=== PATIENT | female | born 1965 | race Caucasian/White ===

== ENCOUNTER 2024-08-05 18:43 | Emergency (ER) | payer BC ==
[~2024-08-05] VITALS: Ht 172.7 cm; Wt 68.2 kg
[2024-08-05 19:36] LABS: BASOPHILS % (AUTO) 0.6 % (0-1); EOSINOPHILS # (AUTO) 0.2 X10'3 (0-0.9); EOSINOPHILS % (AUTO) 3.4 % (0-6); HEMATOCRIT 33.2 % (35.0-45.0); HEMOGLOBIN 10.6 g/dl (12.0-16.0); LYMPHOCYTES # (AUTO) 1.6 X10'3 (1.1-4.8); LYMPHOCYTES % (AUTO) 22.6 % (21-51); MEAN CORPUSCULAR HEMOGLOBIN 23.5 PG (27.0-31.0); MEAN CORPUSCULAR HGB CONC 31.9 g/dL (33.0-36.5); MEAN CORPUSCULAR VOLUME 73.6 FL (78-98); MEAN PLATELET VOLUME 6.9 FL (7.4-10.4); MONOCYTES # (AUTO) 0.9 X10'3 (0-0.9); MONOCYTES % (AUTO) 12.6 % (2-12); NEUTROPHILS # (AUTO) 4.2 X10'3 (1.8-7.7); NEUTROPHILS % (AUTO) 60.8 % (42-75); PLATELET COUNT 370 X10'3 (140-440); RED BLOOD COUNT 4.51 X10'6 (4.20-5.60); RED CELL DISTRIBUTION WIDTH 17.4 % (11.5-14.5); WHITE BLOOD COUNT 6.9 X10'3 (4.5-11.0)
[2024-08-05 19:50] LABS: ALANINE AMINOTRANSFERASE 44 U/L (12-78); ALBUMIN 3.1 G/DL (3.4-5.0); ALBUMIN/GLOBULIN RATIO 0.9 (1.1-1.5); ALKALINE PHOSPHATASE 137 IU/L (46-116); ANION GAP 7 (8-16); ASPARTATE AMINO TRANSFERASE 34 U/L (10-37); BILIRUBIN,TOTAL 0.4 MG/DL (0.1-1.0); BLOOD UREA NITROGEN 13 MG/DL (7-18); BUN/CREATININE RATIO 14.9 (10.0-20.0); CALCIUM 8.4 MG/DL (8.5-10.1); CHLORIDE 107 MMOL/L (99-107); CREATININE 0.87 MG/DL (0.40-0.90); GLUCOSE 87 MG/DL (70-104); POTASSIUM 4.2 MMOL/L (3.5-5.1); SODIUM 142 MMOL/L (135-145); TOTAL CARBON DIOXIDE 28.2 MMOL/L (24-32); TOTAL PROTEIN 6.7 G/DL (6.4-8.2); eCRCL 69 ML/MIN; eGFR 66 ML/MIN
[2024-08-05 20:50] LABS: BILIRUBIN,URINE NEGATIVE (Neg); CLARITY,URINE CLEAR (Clear); COLOR,URINE YELLOW (Yellow); GLUCOSE, URINE NEGATIVE (Neg); KETONES,URINE NEGATIVE (Neg); LEUKOCYTE ESTERASE ,URINE TRACE (Neg); NITRITES, URINE NEGATIVE (Neg); OCCULT BLOOD,URINE SMALL (Neg); PROTEIN,URINE NEGATIVE (Neg); UROBILINOGEN,URINE 0.2 E.U/dL (0.2-1.0)
[2024-08-05 20:53] LABS: UA COLLECTION TYPE CLN CATCH MIDSTREAM
[2024-08-05 20:56] LABS: BACTERIA,URINE FEW /HPF (Neg)
[2024-08-05 20:57] LABS: SQUAMOUS EPITHELIAL CELL,UR FEW /LPF (FEW)
--- NOTE | 2024-08-05 23:36 | Physician Documentation ---
History of Present Illness ~ Chief Complaint: Flank Pain Stated Complaint: "I THINK I HAVE KIDNEY STONES" Time Seen by MD: 23:36 Mode of Arrival: POV HPI Patient presents to the emergency room with two day history of right flank pain. No prior instances. No traumas or falls. No dysuria. Patient feels this may be kidney stones. Medication Reconciliation Allergies: Coded Allergies: No Known Allergies (Unverified , 08/05/24) Review of Systems ROS All review of systems negative except as per HPI Physical Exam Vital Signs: Temperature: 99.6, Source: Temporal, Heart Rate: 73, Respiratory Rate: 19, BP: 133/69, Pulse Oximetry: 100, Weight: 68.200 Physical Exam General: Patient is awake, alert, oriented x4 in no acute distress Head: Normocephalic and atraumatic. Eyes: Conjunctival normal. EOMI. PERRL. ENT: Mucous membranes moist. Neck: Supple, trachea is midline. Chest: Clear to auscultation bilaterally without rales, rhonchi, or wheezes. There is no accessory muscle use or retractions. Cardiac: RRR without murmurs, gallops, or rubs. Abd: Soft, nondistended, nontender, with normoactive bowel sounds. No guarding, rebound, or rigidity. Back: Right CVA tenderness. No spinal midline tenderness, no step-offs. Progress Results/Orders Results/Orders Orders - ALEXANDER AQUINO MD Cult Urine + [place] [facility] Ct (08/05/24 20:57) Ct Abdomen Pelvis (08/05/24 23:55) Completed Orders - ALEXANDER AQUINO MD Cbc/Diff (08/05/24 19:10) BMP (08/05/24 19:10) CMP (08/05/24 19:10) Ua W/Microscopic, Cult If Ind (08/05/24 20:40) Ct Abdomen Pelvis (08/05/24 23:55) Ketorolac Trometh 15mg/Ml Vial (Toradol (08/05/24 23:40) Ondansetron Inj. (Zofran 4mg/2ml Vial) (08/06/24 00:25) Hydrocodone/[place] 5/325mg Tab ([place] 5/32 (08/06/24 00:25) Medications Received in ER Medications (Trade) Dose Ordered Sig/Lei Route PRN Reason Start Time Stop Time Status Last Admin Dose Admin (Toradol injection) 15 mg ONCE ONCE IV 08/05/24 23:40 08/05/24 23:41 DC 08/05/24 23:46 15 MG Vital Signs 08/05/24 08/05/24 08/05/24 19:16 23:30 23:33 Temp 99.6 Pulse 82 73 Resp 18 15 19 B/P (MAP) 125/50 133/69 (90) Pulse Ox 98 100 Laboratory Tests Test 08/05/24 19:24 08/05/24 20:40 White Blood Count 6.9 Red Blood Count 4.51 Hemoglobin 10.6 L Hematocrit 33.2 L Mean Corpuscular Volume 73.6 L Mean Corpuscular Hemoglobin 23.5 L Mean Corpuscular Hemoglobin Concent 31.9 L Red Cell Distribution Width 17.4 H Platelet Count 370 Mean Platelet Volume 6.9 L Neutrophils (%) (Auto) 60.8 Lymphocytes (%) (Auto) 22.6 Monocytes (%) (Auto) 12.6 H Eosinophils (%) (Auto) 3.4 Basophils (%) (Auto) 0.6 Neutrophils # (Auto) 4.2 Lymphocytes # (Auto) 1.6 Monocytes # (Auto) 0.9 Eosinophils # (Auto) 0.2 Basophils # (Auto) 0.0 CBC Comment Sodium Level 142 Potassium Level 4.2 Chloride Level 107 Carbon Dioxide Level 28.2 Anion Gap 7 L Blood Urea Nitrogen 13 Creatinine 0.87 Estimated GFR/1.73 m2 66 BUN/Creatinine Ratio 14.9 Glucose Level 87 Calcium Level 8.4 L Total Bilirubin 0.4 Aspartate Amino Transf (AST/SGOT) 34 Alanine Aminotransferase (ALT/SGPT) 44 Alkaline Phosphatase 137 H Total Protein 6.7 Albumin 3.1 L Globulin 3.6 Albumin/Globulin Ratio 0.9 L Chemistry Comments Urine Specimen Description Cln catch midstream Urine Color Yellow Urine Clarity Clear Urine pH 6.0 Urine Specific [place] 1.020 Urine Protein Negative Urine Glucose (UA) Negative Urine Ketones Negative Urine Occult Blood Small Urine Nitrite Negative Urine Bilirubin Negative Urine Urobilinogen 0.2 Urine Leukocyte Esterase Trace H Urine RBC 3-10 Urine WBC 5-10 H Urine Squamous Epithelial Cells Few Urine Bacteria Few Urine Culture Indicated Indicated Volume Urine Centrifuged 10 ml Urine Comment Microbiology Date/Time Source Procedure Growth Status 08/05/24 20:57 Urine Clean Catch Midstream Urine Culture - Preliminary Culture received. Resulted Medical Decision Making Findings Patient presented to the emergency room with right-sided flank pain. Differenti als include but are not limited to kidney stone, pyelonephritis, musculoskeletal pain, lumbago, aortic pathology therefore emergent labs and imaging indicated. Workup was consistent with a kidney stone. It was considered a large kidney stone therefore we will refer to Urology. Patient's pain is controlled. Urinalysis is negative for geovanna infection however was not the cleanest catch but she denies any urinary symptoms and he had not feel she is suffering from urinary tract infection. ER cautions regarding fever uncontrolled pain discussed. No evidence of acute kidney injury. The need to call the urologist tomorrow discussed as well as the ER precautions Departure Disposition: HOME / SELF CARE / HOMELESS Impression: Primary Impression: Kidney stone Condition: Stable Discharge Instructions: Kidney Stones Additional Instructions: Call urologist in the morning to arrange for follow up for a 7 mm stone in the proximal ureter. Return for fevers or uncontrolled pain. Departure Forms: Excuse form Work or School Excused From: Work Excuse beginning now through the following date: August 13, 2024 May Return but still avoid physical Activity from now until: August 13, 2024 May Return to full physical activity as of: August 13, 2024 Referrals: NO PRIMARY CARE PROVIDER (PCP) Prescriptions Tamsulosin Hcl* (Flomax*) 0.4 Mg Cap.sr.24h 1 CAP PO DAILY, #10 CAP Prov: ALEXANDER AQUINO MD 08/06/24 Hydrocodone Bit/Acetaminophen 5/325 MG ([place] 5/325 MG) 5 Mg/325 Mg Tablet 1-2 TAB PO Q4-6 hours PRN for pain, #20 TAB Prov: ALEXANDER AQUINO MD 08/06/24 Ondansetron 8mg ODT (Ondansetron Odt) 8 Mg Tab.rapdis 1 TAB PO Q6H for nausea/vomiting for 3 Days, #12 TAB 0 Refills Prov: ALEXANDER AQUINO MD 08/06/24 Education Educated: Patient Educated regarding: diagnosis, treatment, need for follow up Signature Scribe Signature: No scribe Attestation: The note accurately reflects work and decisions made by me.Alexander Aquino MD 08/06/24 00:30 ALEXANDER AQUINO MD August 05, 2024 23:36
[2024-08-05] MEDS: ketorolac trometh 15mg/ml vial 15 MG/ML ML IV ONE (23:46)
--- NOTE | 2024-08-06 00:14 | RADIOLOGY REPORT ---
Exam: CT CT ABDOMEN PELVIS History: flank pain Comparison Study: None Technique: Multidetector spiral CT of the abdomen was performed from lung bases to pubic symphysis. Imaging was performed without IV contrast. Axial, coronal and sagittal multiplanar reformats were ob tained from the axial data set by the technologist. Radiation Dose : 1. Abdomen/Pelvis: CTDIvol mGy, DLP mGy*cm. Findings: Evaluation of solid organs is limited due to lack of intravenous contrast use. Lung Bases: No abnormality demonstrated. Liver: Liver is normal in size. No focal lesions noted. Gallbladder and Biliary Tree: No abnormality demonstrated. Spleen: No abnormality demonstrated. Pancreas: No abnormality demonstrated. Adrenal Glands: No abnormality demonstrated. Kidneys: There is an obstructing calculus measuring up to 7 mm in the right proximal ureter. Mild rig ht-sided hydronephrosis. Left kidney appears unremarkable. Bladder: Grossly unremarkable for degree of distention. Bowel: Stomach appears grossly unremarkable. No abnormally dilated or thick-walled loops of large or small bowel noted. Large amount of stool present in the large bowel. Appendix is not visualized; how ever, no secondary findings of acute appendicitis identified. Ascites: Absent Lymphadenopathy: No evidence of lymphadenopathy. Abdominal Wall and Mesentery: Unremarkable. Vasculature: Unremarkable given lack of intravenous contrast. Pelvic Organs: Unremarkable Musculoskeletal: No bony lesions or fracture. Moderate thoracolumbar dextroscoliosis and lower lumbar spondylosis. IMPRESSION: Obstructing calculus measuring 7 mm in right proximal ureter with mild right-sided hydronephrosis. Radiation optimization: All CT scans at this facility use at least one of these dose optimization gerardo hniques: automated exposure control mA and/or kV adjustment per patient size (includes targeted exam s where dose is matched to clinical indication) or iterative reconstruction.
[2024-08-06] MEDS ORDERED: TAMS-55 PO (00:30)
[2024-08-06] MEDS ORDERED: ONDA-245 PO (00:30)
[2024-08-06] MEDS ORDERED: HYDR-3965 PO (00:30)
[2024-08-06] MEDS: ondansetron/PF 4mg/2ml inj IV ONE (00:38)
[2024-08-06] MEDS: HYDROcodone/acetaminophen 5mg/325mg tablet PO ONE (00:39)
[2024-08-06 01:29] VITALS: BP 132/69; PULSE 87; RESP 16; TEMP 99.6; O2SAT 100
== END 2024-08-06 01:30 | disposition home or self-care (01) ==
LOC: ER 18:45
DX: N20.0 Calculus of kidney (principal)
CPT/HCPCS: 36415; 74176; 80053; 81001; 85025; 87088; 96374; 96375; 99285; J1885; J2405

== ENCOUNTER 2024-08-12 13:21 | Inpatient (IN) | payer BC ==
[~2024-08-12] VITALS: Ht 172.7 cm; Wt 67.7 kg
[~2024-08-12 13:21] MED LIST: HYDR-3965 PO; ONDA-245 PO; TAMS-55 PO
[2024-08-12 14:04] LABS: BILIRUBIN,URINE NEGATIVE (Neg); CLARITY,URINE CLEAR (Clear); COLOR,URINE YELLOW (Yellow); GLUCOSE, URINE NEGATIVE (Neg); KETONES,URINE NEGATIVE (Neg); LEUKOCYTE ESTERASE ,URINE NEGATIVE (Neg); NITRITES, URINE NEGATIVE (Neg); OCCULT BLOOD,URINE TRACE-INTACT (Neg); PROTEIN,URINE NEGATIVE (Neg); UROBILINOGEN,URINE 0.2 E.U/dL (0.2-1.0)
[2024-08-12 14:06] LABS: URINE HCG NEGATIVE (NEG)
[2024-08-12 14:10] LABS: UA COLLECTION TYPE URINAL
[2024-08-12 14:17] LABS: BACTERIA,URINE FEW /HPF (Neg); SQUAMOUS EPITHELIAL CELL,UR FEW /LPF (FEW); WBC,URINE 0-4 /HPF (0-4)
[2024-08-12 14:51] LABS: BASOPHILS # (AUTO) 0.1 X10'3 (0-0.2); BASOPHILS % (AUTO) 0.8 % (0-1); EOSINOPHILS # (AUTO) 0.3 X10'3 (0-0.9); EOSINOPHILS % (AUTO) 3.7 % (0-6); HEMATOCRIT 33.4 % (35.0-45.0); HEMOGLOBIN 10.7 g/dl (12.0-16.0); LYMPHOCYTES # (AUTO) 0.9 X10'3 (1.1-4.8); LYMPHOCYTES % (AUTO) 13.8 % (21-51); MEAN CORPUSCULAR HEMOGLOBIN 23.6 PG (27.0-31.0); MEAN CORPUSCULAR VOLUME 73.8 FL (78-98); MEAN PLATELET VOLUME 6.9 FL (7.4-10.4); MONOCYTES # (AUTO) 0.7 X10'3 (0-0.9); NEUTROPHILS # (AUTO) 4.8 X10'3 (1.8-7.7); NEUTROPHILS % (AUTO) 70.7 % (42-75); PLATELET COUNT 333 X10'3 (140-440); RED BLOOD COUNT 4.53 X10'6 (4.20-5.60); RED CELL DISTRIBUTION WIDTH 17.5 % (11.5-14.5); WHITE BLOOD COUNT 6.8 X10'3 (4.5-11.0)
[2024-08-12 15:15] LABS: ALANINE AMINOTRANSFERASE 34 U/L (12-78); ALBUMIN 2.7 G/DL (3.4-5.0); ALBUMIN/GLOBULIN RATIO 0.7 (1.1-1.5); ALKALINE PHOSPHATASE 124 IU/L (46-116); ANION GAP 8 (8-16); ASPARTATE AMINO TRANSFERASE 23 U/L (10-37); BILIRUBIN,TOTAL 0.4 MG/DL (0.1-1.0); BLOOD UREA NITROGEN 16 MG/DL (7-18); BUN/CREATININE RATIO 10.7 (10.0-20.0); CALCIUM 8.3 MG/DL (8.5-10.1); CHLORIDE 106 MMOL/L (99-107); CREATININE 1.49 MG/DL (0.40-0.90); GLUCOSE 89 MG/DL (70-104); LIPASE 12 U/L (16-77); SODIUM 138 MMOL/L (135-145); TOTAL CARBON DIOXIDE 24.3 MMOL/L (24-32); TOTAL PROTEIN 6.8 G/DL (6.4-8.2); eCRCL 40 ML/MIN; eGFR 36 ML/MIN
--- NOTE | 2024-08-12 15:34 | Physician Documentation ---
History of Present Illness ~ Chief Complaint: Flank Pain Stated Complaint: GALLSTONES Time Seen by MD: 15:20 OK to notify your PCP?: Yes Primary Medical Doctor: none Mode of Arrival: POV HPI 59-year-old female presenting with right flank pain. Patient states that the symptoms initially began nine days ago and have been worsening. She presented to the ED seven days ago and was diagnosed with a ureteral stone which is 7 mm. She was discharged home with medications and instructions to follow up with Urology. She has an appointment with Urology in three days. Patient reports that her symptoms have significantly worsened since last visit. The pain is now more severe and she is taking [place] without much relief. She has also been nauseated and did vomit on a couple of occasions. Medication Reconciliation Allergies: Coded Allergies: No Known Allergies (Unverified , 08/05/24) Scheduled Ondansetron 8mg ODT (Ondansetron Odt), 1 TAB PO Q6H Tamsulosin Hcl* (Flomax*), 1 CAP PO DAILY Tamsulosin Hcl* (Flomax*), 1 CAP PO DAILY Scheduled PRN Hydrocodone Bit/Acetaminophen 5/325 MG ([place] 5/325 MG), 1-2 TAB PO Q4-6 hours PRN for pain Past Medical History Past Medical History: No Pertinent History Review of Systems All Other Systems at this time: Reviewed and Negative Physical Exam Vital Signs: Temperature: 98.2, Heart Rate: 72, Respiratory Rate: 17, BP: 119/58, Pulse Oximetry: 96, Weight: 67.730 Oxygen Flow Rate: 0 Physical Exam I have reviewed the triage vitals. CONST: Well developed and well nourished. In no acute distress HENT: Head Atraumatic EYES: Pupils are equal, round and reactive to light. Normal conjunctiva NECK: Normal range of motion. Supple. CARDIO: Normal rate and regular rhythm. No murmurs, rubs, or gallops. S1, S2. PULM/CHEST: No respiratory distress. Lungs clear to auscultation. No wheeze ABD: Soft and nontender. Nondistended. Bowel sounds normal. No guarding. : Exam deferred MSK: No edema. No deformity. Right-sided CVA tenderness NEURO: Alert and oriented to person, place and time. Moving all extremities SKIN: Warm and dry. PSYCH: Normal mood and affect. Good eye contact. Progress Results/Orders Results/Orders Orders - ULISES ZAYAS MD Ct Abdomen Pelvis (08/12/24 15:35) Page Hospitalist (08/12/24 17:34) Fill Out Med Reconciliation (08/12/24 17:34) Completed Orders - ULISES ZAYAS MD Hcg, Ur Ql (08/12/24 13:31) Cbc/Diff (08/12/24 13:31) BMP (08/12/24 13:31) Lipase (08/12/24 13:31) CMP (08/12/24 13:31) Ua W/Microscopic, Cult If Ind (08/12/24 13:37) Ct Abdomen Pelvis (08/12/24 15:35) Normal Saline 1000ml (Sodium Chloride 10 (08/12/24 15:45) Ketorolac Trometh 30mg/Ml Vial (Toradol (08/12/24 15:45) Vital Signs 08/12/24 08/12/24 08/12/24 08/12/24 13:24 15:21 15:28 16:30 Temp 98.2 Pulse 81 72 75 Resp 15 17 B/P (MAP) 107/65 119/58 (78) 111/62 (78) Pulse Ox 97 96 96 O2 Flow Rate 0 Laboratory Tests Test 08/12/24 13:37 08/12/24 13:52 08/12/24 14:39 Urine Specimen Description Urinal Urine Color Yellow Urine Clarity Clear Urine pH 6.0 Urine Specific [place] 1.020 Urine Protein Negative Urine Glucose (UA) Negative Urine Ketones Negative Urine Occult Blood Trace-intact Urine Nitrite Negative Urine Bilirubin Negative Urine Urobilinogen 0.2 Urine Leukocyte Esterase Negative Urine RBC 3-10 Urine WBC 0-4 Urine Squamous Epithelial Cells Few Urine Bacteria Few Urine Culture Indicated Not ind Volume Urine Centrifuged 10 ml Urine Comment Urine HCG, Qualitative Negative White Blood Count 6.8 Red Blood Count 4.53 Hemoglobin 10.7 L Hematocrit 33.4 L Mean Corpuscular Volume 73.8 L Mean Corpuscular Hemoglobin 23.6 L Mean Corpuscular Hemoglobin Concent 32.0 L Red Cell Distribution Width 17.5 H Platelet Count 333 Mean Platelet Volume 6.9 L Neutrophils (%) (Auto) 70.7 Lymphocytes (%) (Auto) 13.8 L Monocytes (%) (Auto) 11.0 Eosinophils (%) (Auto) 3.7 Basophils (%) (Auto) 0.8 Neutrophils # (Auto) 4.8 Lymphocytes # (Auto) 0.9 L Monocytes # (Auto) 0.7 Eosinophils # (Auto) 0.3 Basophils # (Auto) 0.1 CBC Comment Sodium Level 138 Potassium Level 4.0 Chloride Level 106 Carbon Dioxide Level 24.3 Anion Gap 8 Blood Urea Nitrogen 16 Creatinine 1.49 H Estimated GFR/1.73 m2 36 BUN/Creatinine Ratio 10.7 Glucose Level 89 Calcium Level 8.3 L Total Bilirubin 0.4 Aspartate Amino Transf (AST/SGOT) 23 Alanine Aminotransferase (ALT/SGPT) 34 Alkaline Phosphatase 124 H Total Protein 6.8 Albumin 2.7 L Globulin 4.1 Albumin/Globulin Ratio 0.7 L Lipase 12 L Chemistry Comments Medical Decision Making Additional Comment 59-year-old female presenting with right ureterolithiasis. Patient has a known diagnosis of this which was diagnosed last week. Since then however her symptoms have worsened and now she has been having trouble holding down food and fluids due to the severe pain and nausea. Lab workup indicates that her kidney function has now worsened. She now has not elevation of her creatinine level up to 1.49 from 0.87 a week ago. She also has a decrease in her GFR likely due to the decreased p.o. intake and potentially due to postrenal obstruction. I did discuss this case with urologist Dr. Felipe who agreed to consult on the patien t. Given the worsening pain as well as the now acute renal failure I believe it would be prudent to have the patient admitted for IV fluids, pain control and Urology consultation. Report called to hospitalist who accepted the patient. Departure Disposition: ADMITTED INPATIENT Admitted to Inpatient Unit: to hospitalist Impression: Primary Impression: Ureteral stone with hydronephrosis Additional Impression: Acute renal failure Condition: Guarded Referrals: NO PRIMARY CARE PROVIDER (PCP) Signature Scribe Signature: 1 Attestation: 1 ULISES ZAYAS MD August 12, 2024 15:34
--- NOTE | 2024-08-12 16:24 | RADIOLOGY REPORT ---
Exam: CT CT ABDOMEN PELVIS History: R flank pain- worsening since last week Comparison Study: CT CT ABDOMEN PELVIS on DOS: 08/05/24 TECHNIQUE: Multidetector CT of the abdomen and pelvis without IV contrast. Axial, coronal and sagitta l multiplanar reformats were obtained from the axial data set by the technologist. Radiation Dose Information: CT Dose: CTDI volume is 11.33 mGy. Dose-length product is 602.7 mGy*cm FINDINGS: Bibasilar atelectasis/ scarring. Partially visualized heart is unremarkable. Liver, spleen, pancreas and adrenal glands are punctate nonobstructing right renal upper pole calculu s. unremarkable. Mild distention of the gallbladder with possible sludge within the gallbladder. Moderate right hydroureteronephrosis with interval descent of the obstructing right ureteral 7 mm katarzyna culus into the right mid to distal ureter. The left kidney, left ureter and the urinary bladder unrem arkable. Uterus and adnexa unremarkable. Stomach is unremarkable. Segmental wall thickening of small bowel within the left hemiabdomen The rem ainder of the small bowel loops are unremarkable. Appendix is unremarkable. Large amount of fecal mat erial within the ascending and transverse colons with small to moderate amount of fecal material with in the remainder of the colon. No evidence of intraperitoneal free air or free fluid. No evidence of aortic aneurysm. Mild atherosclerotic calcification of the aorta. Slightly prominent mesenteric lymph nodes measuring up to 0.6 cm which may be reactive. The soft tissues are unremarkable. No destructive osseous lesions are noted. Sclerotic focus of the l eft acetabulum which represent a bone [place] /blastic lesion. IMPRESSION: Redemonstration of moderate right hydronephrosis with interval descent of the obstructing calculus in to the mid to distal right ureter. Segmental wall thickening of small bowel within the left hemiabdomen which may be due to mild enterit is.
[2024-08-12] MEDS: ketorolac trometh 30MG/ML vial 30 MG/ML VIAL IV ONE (16:31)
[2024-08-12] MEDS: normal saline 1000ml 1,000 ML IV ONE (16:32)
[2024-08-12] MEDS ORDERED: potassium Cl 40MEQ/1/2NS 520ml 520 ML IV PRN (18:00)
[2024-08-12] MEDS ORDERED: magnesium sulf-water 4G/100mL 100 ML IV PRN (18:00)
[2024-08-12] MEDS ORDERED: mag hydrox/Alum hydrox/simeth 30ml oral suspension PO PRN (18:00)
[2024-08-12] MEDS ORDERED: HYDROcodone/acetaminophen 5mg/325mg tablet PO PRN (18:00)
[2024-08-12] MEDS ORDERED: magnesium sulf-water 2g/50mL 50 ML IV PRN (18:00)
[2024-08-12] MEDS ORDERED: acetaminophen 325mg tablet PO PRN ×2 (18:00)
[2024-08-12] MEDS ORDERED: magnesium hydroxide 30ml (MOM) UD suspension PO PRN (18:00)
[2024-08-12] MEDS ORDERED: potassium Cl 20 mEq SR tablet PO PRN ×2 (18:00)
[2024-08-12] MEDS ORDERED: ondansetron/PF 4mg/2ml inj IV PRN (18:00)
[2024-08-12] MEDS: normal saline 1000ml 1,000 ML IV SCH (18:24)
--- NOTE | 2024-08-12 18:44 | HISTORY AND PHYSICAL ---
History & Physical Providers to CC ~ History of Present Illness Reason for Admit\Complaint: Right-sided kidney stone with hydronephrosis and intractable pain History of Present Illness This is a 59-year-old female who was seen in the ED exactly one-week ago was diagnosed with a right-sided kidney stone that is 7 mm causing mild right-sided hydronephrosis the patient was given a prescription for Alda and Flomax with an appointment for Urology which is scheduled for August 16. The patient's has a intractable pain has been experiencing some chills as well and has been taking Flomax and Alda without relief the patient denies any dysuria has not noticed some hematuria the patient has been severe pain two point where she came back to the ED today he is also experiencing right-sided flank pain. The patient had a creatinine of 0.87 on initial ED visit today is 1.49 in her GFR has dropped from 66-[address] scan of the abdomen and pelvis demonstrates moderate. ED physician Dr. Corona spoke with on-call urologist Dr. Felipe who will evaluate the patient tomorrow the patient will be NPO after midnight Allergies: Coded Allergies: No Known Allergies (Unverified , 08/05/24) Home Medications Home Medications Active Flomax* (Tamsulosin HCl) 0.4 Mg Cap.sr.24h 1 Cap PO DAILY Flomax* (Tamsulosin HCl) 0.4 Mg Cap.sr.24h 1 Cap PO DAILY [place] 5/325 MG (Acetaminophen/Hydrocodone Bitart) 5 Mg/325 Mg Tablet 1-2 Tab PO Q4-6 HOURS PRN Ondansetron Odt (Ondansetron HCl) 8 Mg Tab.rapdis 1 Tab PO Q6H 3 Days Past Medical History Past Medical History Psoriasis Past Surgical History Surgical History Comment No prior surgery Family History Family History: FH: heart disease MOTHER Past Social History Social History Comment Quit smoking cigarettes two years ago has a 20 pack-year history of smoking, denies any alcohol or illicit drug use. Full code status ROS ROS Except for positives in the HPI the rest of the 14 point review systems is negative Exam Vitals: Vital Signs Date Time Temp Pulse Resp B/P (MAP) Pulse Ox O2 Delivery O2 Flow Rate FiO2 08/12/24 16:30 75 111/62 (78) 96 08/12/24 15:28 17 08/12/24 13:24 98.2 0 General: Gen. No acute distress alert and oriented 4 Lungs clear to ascultation bilaterally, no wheezes rales or rhonchi appreciated Heart normal sinus rhythm no murmurs rubs or clicks noted Abdomen soft nontender bowel sounds are normoactive Lower extremities no clubbing cyanosis, nor edema appreciated bilaterally Diagnostic Data Last Recorded Lab Results: 08/12/24 1439 08/12/24 1439 Advance Care Planning Advanced Care plannin - 30 Minutes Problems: (1) Kidney stone Status: Acute Additional Plan # 7 mm right-sided nephrolithiasis with secondary hydronephrosis intractable right-sided flank- Ed physician Dr Nolasco spoke with on-call urologist Dr. Felipe who will evaluate the patient tomorrow the patient will be NPO after midnight- IV Dilaudid IV fluids Increase Flomax to b.i.d. dosing IV Rocephin # DEO secondary to right-sided obstructive nephrolithiasis- IV fluid resuscitation Daily CMP # microcytic anemia- Iron studies are ordered # DVT prophylaxis SCDs and SQ Lovenox I spent a total of 17 minutes on reviewing various resuscitative measures/ ACP with the patient at the time of admission. The patient has decided on a full code status Date of Service: August 12, 2024 Billing Provider: CHHAYA LOJA DO Common Visit Codes: 25293-ADWXQWA INP/OBS CARE (HIGH) Secondary Visit Codes: 51881-[id number] CARE PLAN 30 MINUTES CHHAYA LOJA DO August 12, 2024 18:44
[2024-08-12] MEDS: CefTRIAXone/D5W-Rocephin 1gm 50 ML IV ONE (19:46)
[2024-08-12] MEDS: HYDROmorphone inj. 0.5 MG/0.5 ML DISP.SYRIN IV PRN (19:55)
[2024-08-12] MEDS: docusate sod 100mg capsule PO SCH (20:00)
[2024-08-12] MEDS: K and/or MAG REPLACEMENT MC SCH (20:00)
[2024-08-12] MEDS ORDERED: tamsulosin 0.4mg capsule PO SCH (21:00)
[2024-08-12 22:00] VITALS: BP 143/73; PULSE 75; RESP 16; TEMP 98.2; O2SAT 96
[2024-08-12] MEDS: HYDROcodone/acetaminophen 10/325mg tab PO PRN (22:10)
[2024-08-12] MEDS: tamsulosin 0.4mg capsule PO SCH (22:11)
[2024-08-12] MEDS: enoxaparin 40mg/0.4ml syringe SQ SCH (22:12)
[2024-08-13] VITALS (11 sets, daily range): BP systolic 122–139; BP diastolic 65–83; PULSE 69–76; RESP 11–19; TEMP 98–98.7; O2SAT 95–100
[2024-08-13] MEDS: HYDROmorphone 1 mg/ml syringe IV PRN (05:34)
[2024-08-13 06:06] LABS: BASOPHILS % (AUTO) 0.8 % (0-1); EOSINOPHILS # (AUTO) 0.2 X10'3 (0-0.9); EOSINOPHILS % (AUTO) 4.1 % (0-6); HEMATOCRIT 29.2 % (35.0-45.0); HEMOGLOBIN 9.5 g/dl (12.0-16.0); LYMPHOCYTES % (AUTO) 19.2 % (21-51); MEAN CORPUSCULAR HGB CONC 32.3 g/dL (33.0-36.5); MEAN CORPUSCULAR VOLUME 74.2 FL (78-98); MEAN PLATELET VOLUME 7.3 FL (7.4-10.4); MONOCYTES # (AUTO) 0.8 X10'3 (0-0.9); MONOCYTES % (AUTO) 13.9 % (2-12); NEUTROPHILS # (AUTO) 3.4 X10'3 (1.8-7.7); PLATELET COUNT 267 X10'3 (140-440); RED BLOOD COUNT 3.94 X10'6 (4.20-5.60); RED CELL DISTRIBUTION WIDTH 17.5 % (11.5-14.5); WHITE BLOOD COUNT 5.4 X10'3 (4.5-11.0)
[2024-08-13 06:27] LABS: APTT 32 SECONDS (22-32); INR 1.1 INR; PROTHROMBIN TIME 11.2 SECONDS (9.0-12.0)
[2024-08-13 06:34] LABS: ALANINE AMINOTRANSFERASE 22 U/L (12-78); ALBUMIN 2.2 G/DL (3.4-5.0); ALBUMIN/GLOBULIN RATIO 0.6 (1.1-1.5); ALKALINE PHOSPHATASE 101 IU/L (46-116); ANION GAP 6 (8-16); ASPARTATE AMINO TRANSFERASE 23 U/L (10-37); BILIRUBIN,TOTAL 0.2 MG/DL (0.1-1.0); BLOOD UREA NITROGEN 15 MG/DL (7-18); BUN/CREATININE RATIO 10.6 (10.0-20.0); CALCIUM 7.9 MG/DL (8.5-10.1); CHLORIDE 110 MMOL/L (99-107); CREATININE 1.42 MG/DL (0.40-0.90); GLUCOSE 103 MG/DL (70-104); MAGNESIUM 1.8 MG/DL (1.5-2.4); POTASSIUM 3.6 MMOL/L (3.5-5.1); SODIUM 140 MMOL/L (135-145); TOTAL CARBON DIOXIDE 23.9 MMOL/L (24-32); TOTAL PROTEIN 5.7 G/DL (6.4-8.2); eCRCL 42 ML/MIN; eGFR 38 ML/MIN
[2024-08-13] MEDS: CefTRIAXone/D5W-Rocephin 1gm 50 ML IV SCH (08:24)
--- NOTE | 2024-08-13 08:26 | RADIOLOGY REPORT ---
EXAM: DI CHEST,SINGLE VIEW Indication: pain Technique: Single frontal view of the chest was obtained Comparison: None FINDINGS: Lines and Tubes: None Lungs: No focal consolidation. Pleura: No effusion. No pneumothorax. Cardiomediastinal contours: Unremarkable Bones: No acute osseous abnormality. IMPRESSION: No acute cardiopulmonary disease.
--- NOTE | 2024-08-13 10:09 | ELECTROCARDIOGRAPH REPORT ---
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 NAKUL Alvarez Measurements Intervals [place] Rate: 77 P: 65 HI: 136 QRS: 49 QRSD: 83 T: 58 QT: 374 QTc: 424 Interpretive Statements Sinus rhythm Borderline low voltage, extremity leads Electronically Signed On 08-13-2024 17:36:[address] NAKUL Alvarez Please click the below link to view image of tracing.
--- NOTE | 2024-08-13 11:39 | CONSULTATION REPORT ---
Consult Providers to CC ~ History of Present Illness Reason for Admit\Complaint: Right flank pain History of Present Illness Patient has a known kidney stone diagnosed last week int he emergency department. Right sided 7 mm mid-ureteral stone. She has a follow-up appointment set for August 16 as an outpatient with urology. She contined to have severe pain and presented to the emergency department with right sided pain. Was found to have an acute kidney injury, and the stone in the same position. She was admitted for pain control and observation. Allergies: Coded Allergies: No Known Allergies (Unverified , 08/05/24) Home Medications Home Medications Active Flomax* (Tamsulosin HCl) 0.4 Mg Cap.sr.24h 1 Cap PO DAILY Flomax* (Tamsulosin HCl) 0.4 Mg Cap.sr.24h 1 Cap PO DAILY [place] 5/325 MG (Acetaminophen/Hydrocodone Bitart) 5 Mg/325 Mg Tablet 1-2 Tab PO Q4-6 HOURS PRN Ondansetron Odt (Ondansetron HCl) 8 Mg Tab.rapdis 1 Tab PO Q6H 3 Days Family History Family History: FH: heart disease MOTHER ROS ROS A pertinent 10 point review of systems was performed and was normal except as otherwise noted. Please also see HPI for added review of systems. Exam Vitals: Vital Signs Date Time Temp Pulse Resp B/P (MAP) Pulse Ox O2 Delivery O2 Flow Rate FiO2 08/13/24 09:24 16 08/12/24 22:00 98.2 75 143/73 (96) 96 Room Air 08/12/24 21:30 0.0 General: General: Awake and Alert, no acute distress. HEENT: HEENT: Conjunctiva pink, Sclera clear, Mucus Membranes moist. Neck: Neck: Supple without masses and tenderness. Chest: Resp: Unlabored. Cardiovascular: Heart: Regular Rate and rhythm Abdomen: Abdomen: Soft and non tender no organomegaly Extremities: Extremities: No cyanosis,clubbing or edema. Skin: Skin: Warm and Dry. Diagnostic Data Last Recorded Lab Results: 08/13/24 0502 08/13/24 0502 Diagnostic Data: Laboratory Tests Test 08/13/24 05:02 Prothrombin Time 11.2 SECONDS (9.0-12.0) INR International Normalized Ratio 1.1 INR Activated Partial Thromboplast Time 32 SECONDS (22-32) Coagulation Comments Problems: (1) Ureteral stone with hydronephrosis Status: Acute Assessment & Plan: Right ureteral stone with significant hydronephrosis and swelling. I would recommend stent placement for decompression of the kidney with treatment at a later date. I discussed risks of the surgery with the patient including infection, bleeding, damage to surrounding tissues, and need for subsequent procedures. I discussed benefits including allowing for decompression of the right kidney, improvement of renal function, and pain control. I also discussed alternatives including continued with medical expulsive therapy. After this discussion the patient agreed to proceed with surgery and consented to it. - NPO - OR for cystoscopy, right retrograde pyelogram and ureteral stent placement ADRI TOTH MD August 13, 2024 11:39
[2024-08-13] MEDS ORDERED: morphine 2 MG/ML inj. syringe IV PRN (13:30)
[2024-08-13] MEDS ORDERED: hydrALAZINE 20mg/ml inj. IV PRN (13:30)
[2024-08-13] MEDS ORDERED: fentaNYL/PF 50MCG/1 ML 2ML syringe IV PRN ×2 (13:30)
[2024-08-13] MEDS ORDERED: labetalol 20mg/4ml (5mg/ml) syringe IV PRN (13:30)
[2024-08-13] MEDS ORDERED: ringers solution, lacted 1,000 ML IV SCH (13:30)
[2024-08-13] MEDS ORDERED: morphine 4 MG/ML inj SYRINge IV PRN (13:30)
[2024-08-13] MEDS ORDERED: ondansetron/PF 4mg/2ml inj IV PRN (13:30)
[2024-08-13] MEDS ORDERED: iohexol 300 MG/1 ML 50ml polymer ONE (14:52)
[2024-08-13] MEDS ORDERED: LIDOcaine 2% (20mg/ml) 5ml vial ONE (15:10)
[2024-08-13] MEDS ORDERED: ondansetron/PF 4mg/2ml inj ONE (15:10)
[2024-08-13] MEDS ORDERED: dexamethasone sod phosphate 4mg/ml inj. ONE (15:10)
[2024-08-13] MEDS ORDERED: fentaNYL/PF 50MCG/1 ML 2ML syringe ONE (15:10)
[2024-08-13] MEDS ORDERED: propofol inj 20 ML IV ONE (15:10)
[2024-08-13] MEDS ORDERED: sevoflurane 250ml liquid IH ONE (15:15)
[2024-08-13] MEDS ORDERED: naloxone 0.4 mg/ml inj ONE (15:42)
[2024-08-13] MEDS ORDERED: CEPH500C2 PO (18:07)
--- NOTE | 2024-08-13 18:42 | OPERATIVE REPORT ---
Operative Report Providers to ~ Date of Procedure: August 13, 2024 Pre-Operative Diagnosis: Right sided hydronephrosis ureteral stone Post-Operative Diagnosis SAME as PRE-Op Procedure Performed Cystoscopy, right retrograde pyelogram and right ureteral stent placement Surgeon: MD Valerio Steam Drier Tender None Type of Anesthesia: General Findings: Right distal ureteral stone with hydronephrosis proximal. Complications None Prosthetics\Implants used: Right 6 x 24 double J ureteral stent Estimated Blood Loss: Minimal Specimen Removed: None Description of Procedure: Patient was brought to the operating room, given a general anesthtic and placed in the dorsal lithotomy position. She was prepped and draped in the normal sterile fashion. A timeout was performed. A 22 egyptian cystoscope was inserted via urethra. The right ureteral orifice was identified and intubated with a 5 egyptian open ended catheter. A retrograde pyelogram was performed which showed distal obstruction and hydronephrosis proximal. A wire was passed easily up to the kidney and a 6 x 24 double J ureteral stent was passed over the wire into the kidney on the right side. The wire was removed. There was good coil on the proximal portion of the stent on spot fluoroscopy and good coil on direct visualization on the distal coil. The bladder was drained of urine and the cystoscope was removed via urethra. ADRI TOTH MD August 13, 2024 18:42
--- NOTE | 2024-08-13 21:41 | DISCHARGE SUMMARY ---
Discharge Summary Providers to CC ~ Discharge Summary Admission Diagnosis: Right sided hydronephrosis ureteral stone Hospital Course DATE OF ADMISSION: 08/12/2024 DATE OF DISCHARGE: 08/13/2024 Discharge Diagnosis\Comment: Kidney stone with right-sided moderate hydronephrosis and a intractable right- sided flank pain, DEO secondary to right sided obstructive nephrolithiasis, microcytic anemia Operations\Procedures: Cystoscopy, right retrograde pyelogram and right ureteral stent placement Consultants: Dr. Yves Luo urologist Complications: None Condition on DC: Stable New Medications: Cephalexin Monohydrate (Cephalexin) 500 Mg Capsule 1 CAP PO Q8H, #21 CAP Continued Medications: Hydrocodone Bit/Acetaminophen 5/325 MG ([place] 5/325 MG) 5 Mg/325 Mg Tablet 1-2 TAB PO Q4-6 hours PRN for pain, #20 TAB Ondansetron 8mg ODT (Ondansetron Odt) 8 Mg Tab.rapdis 1 TAB PO Q6H for nausea/vomiting for 3 Days, #12 TAB 0 Refills Tamsulosin Hcl* (Flomax*) 0.4 Mg Cap.sr.24h 1 CAP PO DAILY, #10 CAP Tamsulosin Hcl* (Flomax*) 0.4 Mg Cap.sr.24h 1 CAP PO DAILY, #10 CAP Discharge Summary: I admitted the patient with the following HPI:This is a 59-year-old female who was seen in the ED exactly one-week ago was diagnosed with a right-sided kidney stone that is 7 mm causing mild right-sided hydronephrosis the patient was given a prescription for [place] and Flomax with an appointment for Urology which is scheduled for August 16. The patient's has a intractable pain has been experiencing some chills as well and has been taking Flomax and [place] without relief the patient denies any dysuria has not noticed some hematuria the patient has been severe pain two point where she came back to the ED today he is also experiencing right-sided flank pain. The patient had a creatinine of 0.87 on initial ED visit today is 1.49 in her GFR has dropped from 66-[address] scan of the abdomen and pelvis demonstrates moderate. ED physician Dr. Corona spoke with on-call urologist Dr. Felipe who will evaluate the patient tomorrow the patient will be NPO after midnight The patient had mild improvement in the creatinine on the following morning from 1.49-1.42. The patient went to the OR and has a right-sided retrograde pyelogram and right-sided ureteral stent placement with Dr. Luo urologist. The patient came back from the procedure and requested to be discharged home the patient remained stable I assessed that the patient could go home recommended the patient to return to the ED if she develops a fever or chills or intractable abdominal pain. Did discharge the patient with prescription for Keflex. Patient has a three-week follow up with Dr. Luo Gen. No acute distress alert and oriented 4 Lungs clear to ascultation bilaterally, no wheezes rales or rhonchi appreciated Heart normal sinus rhythm no murmurs rubs or clicks noted Abdomen soft nontender bowel sounds are normoactive Lower extremities no clubbing cyanosis, nor edema appreciated bilaterally The patient felt ready to be discharged and was medically cleared to be discharged on 08/13/2024 The patient was seen and evaluated on day of discharge. Time spent on discharge 35 minutes The patient recovered sooner than to be expected with right-sided hydronephrosis with a right-sided kidney stone *Problems/Diagnosis: (1) Ureteral stone with hydronephrosis Status: Acute Total Time Spent on D/C: > 30 Minutes Date of Service: August 13, 2024 Billing Provider: CHHAYA LOJA DO Common Visit Codes: 71604-GDL/OBS DISCH DAY >30min CHHAYA LOJA DO August 13, 2024 21:41
== END 2024-08-13 19:30 | disposition home or self-care (01) | DRG 661 ==
LOC: ER 13:22 → ED HOLD 18:08 → SUR 3N 21:34
PROVIDERS: ADMIT Family Medicine; ATTEND Family Medicine
PROC: BT1D1ZZ Fluoroscopy of Right Kidney, Ureter and Bladder using Low Osmolar Contrast (ICD-10-PCS; 2024-08-13)
PROC: 0T768DZ Dilation of Right Ureter with Intraluminal Device, Via Natural or Artificial Opening Endoscopic (ICD-10-PCS; principal; 2024-08-13 15:24)
DX: N13.2 Hydronephrosis with renal and ureteral calculous obstruction (principal); N17.9 Acute kidney failure, unspecified; K80.20 Calculus of gallbladder without cholecystitis without obstruction; D50.9 Iron deficiency anemia, unspecified; Z79.899 Other long term (current) drug therapy; Z87.891 Personal history of nicotine dependence
CPT/HCPCS: 96361; 96365; 96372; 96375; 99285; Z7506; 36415; 71045; 74176; 74420; 76000; 80053; 81001; 81025; 82948; 83690; 83735; 85025; 85610; 85730; 87081; 93005; A4618; C2617; G0378; J0696; J1100; J1171; J1650; J2003; J2310; J2405; J2704; J3010; J7030; J7120; Q9967